=== PATIENT | female | born 1965 | race Two or more races ===

== ENCOUNTER 2020-07-08 12:40 | Emergency (ER) | payer OTHER ==
[~2020-07-08] VITALS: Ht 170.2 cm; Wt 78.5 kg
--- NOTE | 2020-07-08 12:44 | NUR ---
CAME IN FOR HEADACHE SINCE THIS MORNING, TO ER BED 11, HOOKED TO MONITOR, CHANGED TO HOSP GOWN, WARM BLANKET PROVIDED, PATIENT AAO x 4, BREATHING EVENA AND UNLABORED. AWAITING MD BARRIGA.
--- NOTE | 2020-07-08 12:57 | NUR ---
DR COX AT BEDSIDE
[2020-07-08] MEDS ORDERED: KETOROLAC TROMETHAMINE INJ 30 MG/ML VIAL IV ONE (13:00)
[2020-07-08] MEDS ORDERED: IV NS 0.9% 1,000 ML IV ONE (13:00)
[2020-07-08] MEDS ORDERED: PROCHLORPERAZINE EDISYLATE 10 MG/2 ML VIAL IVP ONE (13:00)
[2020-07-08] MEDS ORDERED: diphenhydrAMINE HCL 50 MG/ML VIAL IV ONE (13:00)
[2020-07-08] MEDS ORDERED: PROCHLORPERAZINE EDISYLATE 10 MG/2 ML VIAL ONE (13:31)
[2020-07-08] MEDS ORDERED: diphenhydrAMINE HCL 50 MG/ML VIAL ONE (13:31)
[2020-07-08] MEDS ORDERED: KETOROLAC TROMETHAMINE 15 MG/ML VIAL ONE (13:31)
--- NOTE | 2020-07-08 14:14 | NUR ---
MD SPEAKING WITH THE FAMILY IN THE WAITING ROOM FOR CLARIFICATIONS
--- NOTE | 2020-07-08 14:40 | NUR ---
IV removed. Catheter intact and site benign. Pressure and 4x4 applied to site. No bleeding noted. Patient discharged to home with family in stable condition. Written and verbal after care instructions given. Patient verbalizes understanding of instruction. Instructed not to drive. Assisted to waiting room where family is waiting.
[2020-07-08 14:41] VITALS: BP 155/71
== END 2020-07-08 14:42 | disposition home or self-care (01) ==
LOC: ER 12:42
DX: R51 Headache (principal); R11.2 Nausea with vomiting, unspecified; H53.149 Visual discomfort, unspecified; I10 Essential (primary) hypertension
CPT/HCPCS: 96361; 96374; 96375; 99284; J0780; J1200; J1885; J7030